=== PATIENT | male | born 1985 | race Caucasian/White ===

== ENCOUNTER 2017-02-24 10:08 | Emergency (ER) | payer BC ==
[~2017-02-24] VITALS: Ht 188 cm; Wt 102.3 kg
[2017-02-24 10:13] VITALS: BP 133/80; TEMP 99
[2017-02-24] MEDS ORDERED: SUDAFED60 MG PO (10:16)
[2017-02-24] MEDS ORDERED: AMOXIL400 MG PO (10:16)
[2017-02-24] MEDS ORDERED: ROBITUSSIN100 MG/5 M PO (10:17)
[2017-02-24 12:44] LABS: BASO # 0.1 (0.0-0.2); BASO % 0.6 % (0.0-2.0); EOS # 0.1 (0.0-0.7); EOS % 1.7 % (0-4.0); GRAN # 5.2 (1.4-6.5); GRAN % 64.7 % (42.2-75.2); HEMATOCRIT 43.5 % (42.0-52.0); HEMOGLOBIN 15.3 g/dl (13.5-18.0); LYMPH # 1.9 (1.2-3.4); LYMPH % 23.4 % (20.0-51.0); MEAN CELL VOLUME 88 fl (80.0-100.0); MEAN CORPUSCULAR HEMOGLOBIN 31 pg (27.0-31.0); MEAN CORPUSCULAR HGB CONC 35 g/dl (33.0-37.0); MEAN PLATELET VOLUME 9.7 fl (7.4-10.4); MONO # 0.7 (0.1-0.6); MONO % 9.2 % (1.7-9.3); PLATELET COUNT 296 K/mm3 (130-400); RED BLOOD COUNT 4.93 M/mm3 (4.20-5.60); REDCELL DISTRIBUTION WIDTH-CV 11.1 % (11.5-14.5); WHITE BLOOD COUNT 8.1 K/mm3 (4.8-10.8)
[2017-02-24 13:07] LABS: PH 6 (5-8); SQUAMOUS EPITHELIAL 0-2 /hpf; URINE APPEARANCE Clear; URINE BACTERIA None Seen /hpf; URINE BILIRUBIN Negative (NEGATIVE); URINE BLOOD Negative (NEGATIVE); URINE COLOR Yellow; URINE GLUCOSE Negative (NEGATIVE); URINE KETONE Negative (NEGATIVE); URINE RBC 0-2 /hpf; URINE UROBILINOGEN Negative (NEGATIVE); URINE WBC 0-2 /hpf
[2017-02-24] MEDS ORDERED: CLEOCIN HCL300 MG PO (13:39)
[2017-02-24 14:59] VITALS: PULSE 68
== END 2017-02-24 14:59 | disposition home or self-care (01) ==
LOC: COL.ER 10:08
PROVIDERS: Nurse Practitioner
DX: J03.90 Acute tonsillitis, unspecified (principal)
CPT/HCPCS: J8540